=== PATIENT | male | born 1940 | race Two or more races ===

== ENCOUNTER 2017-10-22 19:44 | Emergency (ER) | payer MEDICARE, OTHER ==
[~2017-10-22] VITALS: Ht 175.3 cm; Wt 71.7 kg
[~2017-10-22 19:44] MED LIST: ALDACTONE25 MG PO; AMBIEN5 MG PO; FLONS; LANTUS100 U/ML SC; LASIX40 MG PO; LOVASTATIN20 MG PO; METFORMIN HCL1000 MG PO; PLA75 PO; PROAIR HFA0.09 MG/A1 INH; SIMVASTATIN20 M1 PO; SYMBICORT1 AE3 INH; [UNRECOGNIZED DRUG - OTHER]
[2017-10-22 20:03] VITALS: Ht 175.3 cm; Wt 71.7 kg
[2017-10-22 21:16] LABS: BASOPHIL % 0.7 % (0-2); PLATELET COUNT 248 x10^3mcL (130-400); RED CELL DISTRIBUTION WIDTH 13.4 % (11.5-14.5)
[2017-10-22 21:27] LABS: CALCIUM 9.5 mg/dL (8.5-10.1); CARBON DIOXIDE 25.7 mmol/L (21-32); CHLORIDE SERUM 106 mmol/L (98-107); CREATININE SERUM 1.7 mg/dL (0.7-1.3); GLUCOSE SERUM 125 mg/dL (74-106); POTASSIUM SERUM 4.5 mmol/L (3.5-5.1); SODIUM SERUM 144 mmol/L (136-145)
[2017-10-22 21:32] LABS: ALBUMIN 3.8 g/dL (3.4-5.0); ALKALINE PHOSPHATASE 61 U/L (46-116); ALT/SGPT 21 U/L (16-63); AST/SGOT 20 U/L (15-37); BILIRUBIN TOTAL 0.33 mg/dL (0.20-1.00); TOTAL PROTEIN, SERUM 8.1 g/dL (6.4-8.2)
[2017-10-22 21:56] LABS: CK-MB 1.7 ng/mL (0-3.6)
[2017-10-22 22:56] LABS: microscopic required? YES; urine erythrocyte NEGATIVE (NEGATIVE)
[2017-10-22 23:54] VITALS: BP 153/69
== END 2017-10-22 23:54 | disposition home or self-care (01) ==
LOC: ED 19:44
PROVIDERS: Emergency Medicine
DX: R55 Syncope and collapse (principal); R53.1 Weakness; I10 Essential (primary) hypertension; J44.9 Chronic obstructive pulmonary disease, unspecified; E11.9 Type 2 diabetes mellitus without complications; Z88.0 Allergy status to penicillin; Z95.0 Presence of cardiac pacemaker
CPT/HCPCS: 36415; 83880; 87804; J7030; Q0092

== ENCOUNTER 2017-10-24 15:36 | Inpatient (IN) | payer OTHER, MEDICARE ==
[~2017-10-24] VITALS: Ht 170.2 cm; Wt 70.5 kg
[2017-10-24 18:01] LABS: BASOPHIL % 0.4 % (0-2); PLATELET COUNT 241 x10^3mcL (130-400); RED CELL DISTRIBUTION WIDTH 13.2 % (11.5-14.5)
[2017-10-24 19:02] LABS: CALCIUM 9.3 mg/dL (8.5-10.1); CARBON DIOXIDE 24.6 mmol/L (21-32); CHLORIDE SERUM 105 mmol/L (98-107); CREATININE SERUM 1.5 mg/dL (0.7-1.3); GLUCOSE SERUM 125 mg/dL (74-106); POTASSIUM SERUM 4.2 mmol/L (3.5-5.1); SODIUM SERUM 142 mmol/L (136-145)
[2017-10-24 19:07] LABS: ALBUMIN 3.7 g/dL (3.4-5.0); ALKALINE PHOSPHATASE 57 U/L (46-116); ALT/SGPT 22 U/L (16-63); AST/SGOT 22 U/L (15-37); BILIRUBIN TOTAL 0.41 mg/dL (0.20-1.00); TOTAL PROTEIN, SERUM 7.8 g/dL (6.4-8.2)
[2017-10-24 19:30] LABS: T3 TOTAL 0.72 ng/mL
[2017-10-24 19:36] LABS: FREE T4 1.25 ng/dL (0.76-1.46); FREE THYROXINE INDEX 2.6 ug/dL (1.4-4.5); T4(THYROXINE) 6.3 ug/dL (4.7-13.3)
[2017-10-24 19:38] LABS: PHOSPHOROUS 3.3 mg/dL (2.5-4.9)
[2017-10-24 19:39] LABS: CHOLESTEROL/HDL RATIO 2.8
[2017-10-24] MEDS ORDERED: PROTONIX40 MG PO (20:18)
[2017-10-24] MEDS ORDERED: FAMOTIDINE20 M1 PO (20:19)
[2017-10-24] MEDS ORDERED: SYMBICORT1 AE3 (20:19)
[2017-10-24] MEDS ORDERED: LEVEMIR FLEX100 U/M1 SC (20:21)
[2017-10-24] MEDS ORDERED: NEU300 PO (20:23)
[2017-10-24] MEDS ORDERED: ZOLOFT50 MG (20:23)
[2017-10-24 20:26] VITALS: BP 186/89
[2017-10-24 20:28] VITALS: Ht 170.2 cm; Wt 70.5 kg
[2017-10-24] MEDS ORDERED: CARVEDILOL12.5 M1 PO (21:29)
[2017-10-24 23:08] VITALS: BP 135/79
[2017-10-25 05:38] VITALS: BP 126/56
[2017-10-25 06:57] LABS: BASOPHIL % 0.6 % (0-2); PLATELET COUNT 213 x10^3mcL (130-400); RED CELL DISTRIBUTION WIDTH 13.5 % (11.5-14.5)
[2017-10-25 07:04] LABS: CALCIUM 8.4 mg/dL (8.5-10.1); CARBON DIOXIDE 24.6 mmol/L (21-32); CHLORIDE SERUM 104 mmol/L (98-107); CREATININE SERUM 1.6 mg/dL (0.7-1.3); GLUCOSE SERUM 145 mg/dL (74-106); POTASSIUM SERUM 3.5 mmol/L (3.5-5.1); SODIUM SERUM 139 mmol/L (136-145)
[2017-10-25 07:19] LABS: IRON 39 ug/dL (65-170); TOTAL IRON BINDING CAPACITY 358 ug/dL (250-450)
[2017-10-25 08:04] LABS: RED BLOOD CELLS 3.58 M/mm3 (4.52-5.90)
[2017-10-25 09:42] VITALS: BP 126/71
[2017-10-25 09:57] LABS: microscopic required? YES; urine erythrocyte NEGATIVE (NEGATIVE)
[2017-10-25 10:06] LABS: AMPHETAMINE QUAL UR NONE DETECTED (NEG <=1000)
[2017-10-25 12:21] VITALS: BP 134/58
[2017-10-25 16:41] VITALS: BP 125/64
[2017-10-25 21:04] VITALS: BP 151/38
[2017-10-26 06:27] VITALS: BP 150/56
[2017-10-26 09:16] VITALS: BP 150/57
[2017-10-26] MEDS ORDERED: PROTONIX20 MG PO (09:44)
[2017-10-26 10:05] LABS: BASOPHIL % 0.3 % (0-2)
[2017-10-26 10:14] LABS: PLATELET COUNT 225 x10^3mcL (130-400); RED CELL DISTRIBUTION WIDTH 13.4 % (11.5-14.5)
[2017-10-26 10:20] LABS: CALCIUM 9.3 mg/dL (8.5-10.1); CARBON DIOXIDE 23.2 mmol/L (21-32); CHLORIDE SERUM 106 mmol/L (98-107); CREATININE SERUM 1.7 mg/dL (0.7-1.3); GLUCOSE SERUM 124 mg/dL (74-106); POTASSIUM SERUM 4.8 mmol/L (3.5-5.1); SODIUM SERUM 137 mmol/L (136-145)
[2017-10-26 10:34] VITALS: BP 150/57
== END 2017-10-26 12:41 | disposition home or self-care (01) | DRG 254 ==
LOC: ED 15:36 → DU 18:41 → MU 10-25 10:46
PROVIDERS: Emergency Medicine; Family Medicine; Internal Medicine
PROC: 0W3P8ZZ Control Bleeding in Gastrointestinal Tract, Via Natural or Artificial Opening Endoscopic (ICD-10-PCS; principal; 2017-10-26 07:30)
PROC: 0DB48ZX Excision of Esophagogastric Junction, Via Natural or Artificial Opening Endoscopic, Diagnostic (ICD-10-PCS; 2017-10-26 07:30)
PROC: 0DBL8ZX Excision of Transverse Colon, Via Natural or Artificial Opening Endoscopic, Diagnostic (ICD-10-PCS; 2017-10-26 07:30)
DX: K63.5 Polyp of colon (principal); N17.0 Acute kidney failure with tubular necrosis; E11.65 Type 2 diabetes mellitus with hyperglycemia; G90.8 Other disorders of autonomic nervous system; E11.40 Type 2 diabetes mellitus with diabetic neuropathy, unspecified; Z88.0 Allergy status to penicillin; J44.9 Chronic obstructive pulmonary disease, unspecified; D64.9 Anemia, unspecified; I10 Essential (primary) hypertension; F17.210 Nicotine dependence, cigarettes, uncomplicated; Z95.1 Presence of aortocoronary bypass graft; Z95.0 Presence of cardiac pacemaker; K21.9 Gastro-esophageal reflux disease without esophagitis; F32.9 Major depressive disorder, single episode, unspecified; I25.10 Atherosclerotic heart disease of native coronary artery without angina pectoris
CPT/HCPCS: 43235; 45378; 82962; 83880; 84439; J1200; J1610; J1815; J2250; J2310; J3010; J3490; J7030; Q0092

== ENCOUNTER 2017-12-03 10:12 | Emergency (ER) | payer MEDICARE, OTHER ==
[~2017-12-03] VITALS: Ht 172.7 cm; Wt 81.6 kg
[~2017-12-03 10:12] MED LIST changes: +CARVEDILOL12.5 M1 PO; +FAMOTIDINE20 M1 PO; +LEVEMIR FLEX100 U/M1 SC; +NEU300 PO; +PROTONIX20 MG PO; +PROTONIX40 MG PO; +SYMBICORT1 AE3; +ZOLOFT50 MG
[2017-12-03 10:16] VITALS: BP 83/41; Ht 172.7 cm; Wt 81.6 kg
== END 2017-12-03 10:34 | disposition expired ==
LOC: ED 10:12
DX: I46.9 Cardiac arrest, cause unspecified (principal); I10 Essential (primary) hypertension; E11.9 Type 2 diabetes mellitus without complications; J44.9 Chronic obstructive pulmonary disease, unspecified; F17.210 Nicotine dependence, cigarettes, uncomplicated; Z95.0 Presence of cardiac pacemaker; Z95.1 Presence of aortocoronary bypass graft; Z88.0 Allergy status to penicillin
CPT/HCPCS: 82962; J0171